=== PATIENT | female | born 1985 | race Caucasian/White ===

== ENCOUNTER → 2020-02-28 09:05 | Outpatient (BNVA) | payer OTHER, SELFPAY | PROVIDERS: Visit Provider Specialist | DX: R20.0 Anesthesia of skin (principal); R20.2 Paresthesia of skin | CPT/HCPCS: 95908 ==

== ENCOUNTER → 2020-11-04 09:30 | Outpatient (BNVA) | payer OTHER, SELFPAY | PROVIDERS: Visit Provider Nurse Practitioner Family | DX: M79.646 Pain in unspecified finger(s) (principal) | CPT/HCPCS: 73130 ==

== ENCOUNTER 2021-05-27 08:11 | Outpatient (CLI) | payer BC, OTHER, SELFPAY ==
--- NOTE | 2021-05-27 13:40 | PFTS_ITS ---
Date of Study:05/27/21 Date of Dictation: MECHANICS: Forced vital capacity (FVC) is normal. Forced expiratory volume in one second (FEV1) is normal. FEV1/FVC is normal. FLOW VOLUME LOOP: Normal. LUNG VOLUMES: Not measured DIFFUSING CAPACITY FOR CARBON MONOXIDE: Not measured. INTERPRETATION: The prebronchodilator spirometry is normal. MTDD
== END 2021-05-27 08:12 | disposition home or self-care (01) ==
LOC: RT 08:18
PROVIDERS: PCP Nurse Practitioner Family; Visit Provider Nurse Practitioner Family
DX: R06.09 Other forms of dyspnea (principal)
CPT/HCPCS: 94010

== ENCOUNTER 2022-10-18 10:01 | Outpatient (CLI) | payer BC, OTHER, SELFPAY ==
--- NOTE | 2022-10-18 | XRR_ITS ---
PROCEDURE INFORMATION: Exam: XR Cervical Spine Exam date and time: 10/18/2022 10:24 AM Age: 37 years old Clinical indication: Neck pain; Additional info: Chronic neck pain.No history of trauma or recent surgery is provided. TECHNIQUE: Imaging protocol: Radiologic exam of the cervical spine. 5image(s) are provided. Views: 4 or 5 views. COMPARISON: No relevant prior studies available of the cervical spine. Shoulder same day. FINDINGS: Bones/joints: Osseous alignment is maintained.No displaced fracture or dislocation is appreciated. There is some minimal chronic appearing disc space narrowing for example including at the C4-C5 and C5-C6 levels predominantly. Straightening of the spinal curvature is demonstrated. Soft tissues: No radiopaque foreign body or subcutaneous emphysema is appreciated. No abnormal prevertebral soft tissue thickening is appreciated. Lungs: No lung apical pneumothorax or lobar type consolidation is appreciated. XR/XR cervical spine 4-5V [id number] IMPRESSION: Osseous alignment appears maintained with some mild chronic disc space degeneration for example of the C4-C5 and C5-C6 levels.
--- NOTE | 2022-10-18 10:21 | XRR_ITS ---
PROCEDURE INFORMATION: Exam: XR Right Shoulder Exam date and time: 10/18/2022 10:24 AM Age: 37 years old Clinical indication: Pain; Shoulder; Right; Additional info: M25.511 - pain in right shoulder TECHNIQUE: Imaging protocol: Radiologic exam of the right shoulder. 3image(s) are provided. Views: 2 or more views. COMPARISON: No relevant prior studies available of the shoulder. Cervical spine same day. FINDINGS: Bones/joints: Osseous alignment is maintained.No displaced fracture or dislocation is appreciated. There are some mild chronic appearing degenerative changes of the acromioclavicular junction and superolateral aspect of the humeral head. Lungs: No lung apical pneumothorax or lobar type consolidation is appreciated. Soft tissues: No radiopaque foreign body or subcutaneous emphysema is appreciated. XR/XR shoulder RT min 2V* [id number] IMPRESSION: Osseous alignment is maintained.No fracture or dislocation is appreciated.
== END 2022-10-18 10:02 | disposition home or self-care (01) ==
PROVIDERS: PCP Nurse Practitioner Family; Referring Provider Nurse Practitioner Family; Visit Provider Nurse Practitioner Family
DX: M54.2 Cervicalgia (principal); M25.511 Pain in right shoulder
CPT/HCPCS: 72050; 73030

== ENCOUNTER → 2022-11-09 12:51 | Outpatient (BNVA) | payer BC, OTHER, SELFPAY | PROVIDERS: PCP Nurse Practitioner Family; Visit Provider Specialist | DX: M79.641 Pain in right hand; M79.642 Pain in left hand; G56.01 Carpal tunnel syndrome, right upper limb | CPT/HCPCS: 73110; 73130 ==

== ENCOUNTER → 2022-11-23 09:51 | Outpatient (BNVA) | payer BC, OTHER, SELFPAY | PROVIDERS: PCP Nurse Practitioner Family; Referring Provider Nurse Practitioner Family; Visit Provider Specialist | DX: M25.511 Pain in right shoulder (principal); G56.01 Carpal tunnel syndrome, right upper limb | CPT/HCPCS: 73030 ==

== ENCOUNTER → 2023-05-11 16:44 | Outpatient (BNVA) | payer BC, OTHER, SELFPAY | PROVIDERS: PCP Nurse Practitioner Family; Visit Provider Orthopaedic Surgery | DX: M47.22 Other spondylosis with radiculopathy, cervical region | CPT/HCPCS: 72040 ==

== ENCOUNTER 2023-05-19 06:58 | Outpatient (CLI) | payer BC, OTHER, SELFPAY ==
--- NOTE | 2023-05-19 07:15 | MR_ITS ---
WS: [id number] MRI CERVICAL SPINE NONCONTRAST TECHNIQUE: Sagittal T1, T2 and STIR imaging. Axial T2, gradient, and fiesta imaging. CLINICAL INFORMATION: cervical pain COMPARISON: None. FINDINGS: Straightening with slight reversal normal cervical lordosis. Congenital central canal narrowing. Mild disc bulging worse at C5-6. Cord signal is normal. C2-C3: Normal. C3-C4: Moderate facet arthropathy. Mild disc osteophyte complex with endplate ridging. Mild central c anal stenosis with slight contact of the cervical cord. Mild LEFT foraminal narrowing. Moderate facet arthropathy. C4-C5: Mild disc osteophyte complex with endplate ridging. Moderate facet arthropathy. Mild bilateral bony foraminal narrowing. Mild central canal stenosis. C5-C6: Disc osteophyte complex with endplate ridging. RIGHT paracentral protrusion with indentation o n the cervical cord. Moderate central canal stenosis. Moderate RIGHT and mild LEFT bony foraminal [employer]. Moderate facet arthropathy. C6-C7: Small RIGHT paracentral protrusion with slight indentation of the cervical cord and mild centr al canal stenosis. Moderate LEFT and mild RIGHT bony foraminal narrowing. Moderate facet arthropathy. C7-T1: Mild LEFT and no significant RIGHT foraminal narrowing. Spinal canal is patent. Visualized brain stem structures: Normal. Prevertebral soft tissues: Normal. IMPRESSION: 1. Straightening with slight reversal of normal cervical lordosis. 2. 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 3. RIGHT paracentral protrusion C5-C6 with indentation of the RIGHT ventral cervical cord and modera te central canal stenosis. Moderate RIGHT bony foraminal narrowing at this level. 4. Shallow RIGHT paracentral protrusion C6-7 with mild central canal stenosis and moderate LEFT bony foraminal narrowing. 5. Disc osteophyte complex C4-5 eccentric to the RIGHT with slight contact of the RIGHT ventral cerv ical cord and mild central canal stenosis.
== END 2023-05-19 06:59 | disposition home or self-care (01) ==
LOC: RAD 06:59
PROVIDERS: PCP Nurse Practitioner Family; Visit Provider Orthopaedic Surgery
DX: M48.02 Spinal stenosis, cervical region (principal); M50.222 Other cervical disc displacement at C5-C6 level; M25.78 Osteophyte, vertebrae
CPT/HCPCS: 72141